=== PATIENT | female | born 1970 | race Caucasian/White ===

== ENCOUNTER → 2016-06-30 | Outpatient (CLI) | payer MEDICARE, OTHER | END | disposition home or self-care (01) | LOC: PCVCCLINIC 15:30 | PROVIDERS: ATTEND Internal Medicine Cardiovascular Disease | DX: E78.5 Hyperlipidemia, unspecified (principal); I47.1 Supraventricular tachycardia; I49.01 Ventricular fibrillation; R00.2 Palpitations; Z95.810 Presence of automatic (implantable) cardiac defibrillator | CPT/HCPCS: G0463 ==

== ENCOUNTER → 2016-09-19 | Outpatient (CLI) | payer MEDICARE, OTHER ==
--- NOTE | 2016-09-22 19:11 | PCVCIMAG ---
APPROVED REPORT Study performed: 09/19/2016 09:42:22 EXAM: Comprehensive 2D, Doppler, and color-flow Echocardiogram Patient Location: Echo lab Status: routine Other Information Study Quality: GoodAdequate Indications ICD: Pacemaker Palpitations Cardiomyopathy SVT, HX of V-Tach 2D Dimensions LVEF(%): 34.24 (>50%) IVSd: 6.94 (7-11mm) LVDd: 48.51 mm PWd: 6.17 (7-11mm) LVDs: 40.59 (25-40mm) Left Atrium: 28.55 (27-40mm) Aortic Root: 27.26 mm LV Single Plane 4CH: 40.59 % LV Single Plane 2CH: 39.84 %William's LVEF: 40.22 % Volumes Left Atrial Volume (Systole) Single Plane 4CH: 33.70 mLSingle Plane 2CH: 35.32 mL LA ESV Index: 22.00 mL/m2 Aortic Valve AoV Peak Kalpesh.: 1.14 m/s AO Peak Gr.: 5.16 mmHgLVOT Max P.33 mmHg LVOT Max V: 0.76 m/s Mitral Valve E/A Ratio: 1.1 MV Decel. Time: 159.37 ms MV E Max Kalpesh.: 0.89 m/s MV A Kalpesh.: 0.78 m/s IVRT: 114.19 ms Pulmonary Valve PV Peak Kalpesh.: 0.80 m/sPV Peak Gr.: 2.56 mmHg Pulmonary Vein P Vein S: 0.36 m/sP Vein A: 0.41 m/s P Vein D: 0.48 m/sP Vein A Dur.: 103.8 msec P Vein S/D Ratio: 0.75 Tricuspid Valve TR Peak Kalpesh.: 2.33 m/s TR Peak Gr.: 21.68 mmHg Left Ventricle The left ventricle is normal size. There is normal LV segmental wall motion. There is normal left ventricular wall thickness. Left ventricular systolic function is moderately decreased. LVEF is 35-40%. The left ventricular diastolic function is normal. Right Ventricle The right ventricle is normal size. The right ventricular systolic function is normal. Pacemaker lead is present in the right ventricle. Atria The left atrium size is normal. Pacemaker lead is present in the right atrium. Aortic Valve The aortic valve is normal in structure. No aortic regurgitation is present. There is no aortic valvular stenosis. Mitral Valve The mitral valve is normal in structure. Mild mitral valve regurgitation noted. No evidence of mitral valve stenosis. Tricuspid Valve The tricuspid valve is normal in structure. Mild tricuspid valve regurgitation noted with PAP of 29 mmHg. Pulmonic Valve The pulmonary valve is normal in structure. There is no pulmonic valvular regurgitation. Great Vessels The aortic root is normal in size. IVC is normal in size and collapses with >50% inspiration Pericardium There is no pericardial effusion. <Conclusion> The left ventricle is normal size. There is normal left ventricular wall thickness. Left ventricular systolic function is moderately decreased. LVEF is 35-40%. The left ventricular diastolic function is normal. The right ventricular systolic function is normal. Pacemaker lead is present in the right atrium. There is no aortic valvular stenosis. There is no pericardial effusion. Mild tricuspid valve regurgitation noted with PAP of 29 mmHg.
== END | disposition home or self-care (01) ==
LOC: PCVCIMAG 09:51
PROVIDERS: ATTEND Internal Medicine Cardiovascular Disease
DX: I08.1 Rheumatic disorders of both mitral and tricuspid valves (principal); I47.1 Supraventricular tachycardia; I42.9 Cardiomyopathy, unspecified; E78.4 Other hyperlipidemia; E87.6 Hypokalemia; G47.419 Narcolepsy without cataplexy; Z79.82 Long term (current) use of aspirin; Z95.810 Presence of automatic (implantable) cardiac defibrillator; Z79.899 Other long term (current) drug therapy; Z88.1 Allergy status to other antibiotic agents; Z88.6 Allergy status to analgesic agent
CPT/HCPCS: 80061; 93306; G0463

== ENCOUNTER → 2016-11-14 | Outpatient (CLI) | payer MEDICARE, OTHER | END | disposition home or self-care (01) | LOC: PCVCCLINIC 12:00 | PROVIDERS: ATTEND Internal Medicine Cardiovascular Disease | DX: I42.9 Cardiomyopathy, unspecified (principal); Z95.810 Presence of automatic (implantable) cardiac defibrillator | CPT/HCPCS: 85610 ==

== ENCOUNTER → 2016-11-26 | Outpatient (CLI) | payer MEDICARE, OTHER | END | disposition home or self-care (01) | LOC: PCVCCLINIC 12:09 | PROVIDERS: ATTEND Internal Medicine Cardiovascular Disease | DX: I42.9 Cardiomyopathy, unspecified (principal); I47.1 Supraventricular tachycardia; R25.2 Cramp and spasm; Z95.810 Presence of automatic (implantable) cardiac defibrillator; Z79.82 Long term (current) use of aspirin; Z79.899 Other long term (current) drug therapy | CPT/HCPCS: 36415; 93005; G0463 ==

== ENCOUNTER → 2017-07-24 | Outpatient (CLI) | payer MEDICARE, OTHER | END | disposition home or self-care (01) | LOC: PCVCCLINIC 12:59 | DX: I42.9 Cardiomyopathy, unspecified (principal); E78.00 Pure hypercholesterolemia, unspecified; I10 Essential (primary) hypertension; Z95.810 Presence of automatic (implantable) cardiac defibrillator; Z79.82 Long term (current) use of aspirin | CPT/HCPCS: 80061; 93005; G0463 ==

== ENCOUNTER → 2018-06-24 | Outpatient (CLI) | payer MEDICARE, OTHER ==
--- NOTE | 2018-06-24 13:09 | PCVCIMAG ---
APPROVED REPORT Study performed: 06/24/2018 11:49:05 EXAM: Comprehensive 2D, Doppler, and color-flow Echocardiogram Patient Location: Echo lab Room #: 2Status: routine BSA: 1.63 HR: 69 bpmBP: 104/66 mmHg Rhythm: NSR Other Information Study Quality: Good Risk Factors: Cardiac Risk Factors: HTN Indications Cardiomyopathy Hypertension/HDD ICD 2D Dimensions IVSd: 6.86 (7-11mm)LVOT Diam: 20.51 (18-24mm) LVDd: 49.56 mm PWd: 7.16 (7-11mm)Ascending Ao: 24.69 (22-36mm) LVDs: 39.60 (25-40mm) Left Atrium: 32.27 (27-40mm) Aortic Root: 22.10 mm LV Single Plane 4CH: 39.07 % LV Single Plane 2CH: 45.61 % Biplane EF: 41.2 % Volumes Left Atrial Volume (Systole) Single Plane 4CH: 28.24 mLSingle Plane 2CH: 30.29 mL Biplane LA Volume: 33.00 mLLA ESV Index: 20.00 mL/m2 Aortic Valve AoV Peak Kalpesh.: 1.21 m/s AO Peak Gr.: 5.87 mmHgLVOT Max P.96 mmHg LVOT Max V: 0.86 m/s TYSHAWN Vmax: 2.34 cm2 Mitral Valve E/A Ratio: 1.2 MV Decel. Time: 119.55 ms MV E Max Kalpesh.: 1.11 m/s MV A Kalpesh.: 0.89 m/s MV Max Kalpesh.: 4.91 m/s MV Mean Kalpesh.: 3.84 m/s IVRT: 83.04 ms TDI E/Lateral E': 11.10E/Medial E': 15.86 Medial E' Kalpesh.: 0.07 m/s Lateral E' Kalpesh.: 0.10 m/s Pulmonary Valve PV Peak Kalpesh.: 0.91 m/sPV Peak Gr.: 3.33 mmHg Tricuspid Valve TR Peak Kalpesh.: 2.47 m/s TR Peak Gr.: 24.32 mmHg TV Vmax: 0.66 m/sPA Pressure: 31.00 mmHg Left Ventricle The left ventricle is normal size. There is global moderate hypokinesis of the left ventricle. There is normal left ventricular wall thickness. Left ventricular systolic function is moderately decreased. LVEF is 41%. The left ventricular diastolic function is normal. Right Ventricle The right ventricle is normal size. The right ventricular systolic function is normal. Atria The left atrium size is normal. The right atrium size is normal. Aortic Valve Aortic valve is trileaflet. The aortic valve is normal in structure and function. No aortic regurgitation is present. There is no aortic valvular stenosis. Mitral Valve The mitral valve is normal in structure. Moderate mitral regurgitation. No evidence of mitral valve stenosis. Tricuspid Valve The tricuspid valve is normal in structure. Mild tricuspid regurgitation with a PA pressure of 31 mmHg. Mild pulmonary hypertension. Pulmonic Valve The pulmonary valve is normal in structure. There is no pulmonic valvular regurgitation. Great Vessels The aortic root is normal in size. The ascending aorta is normal in size. Aortic arch is normal in caliber. IVC is normal in size and collapses >50% with inspiration. Pericardium There is no pericardial effusion. There is no pleural effusion. <Conclusion> The left ventricle is normal size. There is global moderate hypokinesis of the left ventricle. LVEF is 41%. The right ventricular systolic function is normal. The left atrium size is normal. Aortic valve is trileaflet. The aortic valve is normal in structure and function. There is no aortic valvular stenosis. Moderate mitral regurgitation. Mild tricuspid regurgitation with a PA pressure of 31 mmHg. Mild pulmonary hypertension. The aortic root is normal in size. There is no pericardial effusion.
== END | disposition home or self-care (01) ==
LOC: PCVCIMAG 10:48
PROVIDERS: ATTEND Internal Medicine Cardiovascular Disease
DX: I08.1 Rheumatic disorders of both mitral and tricuspid valves (principal); I10 Essential (primary) hypertension; I42.9 Cardiomyopathy, unspecified; E78.00 Pure hypercholesterolemia, unspecified; M06.9 Rheumatoid arthritis, unspecified; I27.20 Pulmonary hypertension, unspecified; E78.5 Hyperlipidemia, unspecified; Z95.810 Presence of automatic (implantable) cardiac defibrillator; Z79.82 Long term (current) use of aspirin
CPT/HCPCS: 36415; 80061; 93005; 93306; G0463

== ENCOUNTER → 2018-07-16 | Outpatient (CLI) | payer MEDICARE, OTHER | END | disposition home or self-care (01) | LOC: PCVCCLINIC 09:00 | PROVIDERS: ATTEND Internal Medicine Cardiovascular Disease | DX: Z48.812 Encounter for surgical aftercare following surgery on the circulatory system (principal); Z95.810 Presence of automatic (implantable) cardiac defibrillator | CPT/HCPCS: 93283 ==